=== PATIENT | female | born 1975 | race Two or more races ===

== ENCOUNTER 2016-07-27 20:41 | Emergency (ER) | payer MEDICAID, OTHER ==
[2016-07-27 20:52] VITALS: TEMP 97.9
[2016-07-27] MEDS ORDERED: ONDANSETRON 4 MG/2 ML VIAL IVP ONE (21:08)
[2016-07-27] MEDS ORDERED: NS 1,000 ML IV ONE (21:08)
--- NOTE | 2016-07-27 21:17 | EDPHY ---
H & P Stated Complaint: DAMIAN, n/v Time Seen by Provider: 07/27/16 20:56 HPI/ROS: Chief complaint: Nausea, vomiting and diarrhea History of present illness: This is a 41-year-old female who presents to the emergency department for evaluation of nausea, vomiting and diarrhea. Patient reports the onset of symptoms approximately 3 hours prior to arrival. Multiple episodes of vomiting and diarrhea described as nonbloody. She has had mild abdominal discomfort mostly in the epigastric region. She also feels fatigued. She denies specific precipitating factors. She denies alleviating factors. She denies other associated signs or symptoms including no fevers, no urinary symptoms. No report of sick contacts, travel or antibiotic use. Review of systems: A 10 point review of systems was obtained and other than described above was negative - Personal History LMP (Females 10-55): 1-7 Days Ago Current Tetanus/Diphtheria Vaccine: No Current Tetanus Diphtheria and Acellular Pertussis (TDAP): No - Medical/Surgical History Hx Asthma: No Hx Chronic Respiratory Disease: No Hx Diabetes: No Hx Cardiac Disease: No Hx Renal Disease: No Hx Cirrhosis: No Hx Alcoholism: No Hx HIV/AIDS: No Hx Splenectomy or Spleen Trauma: No Other PMH: depression in past. recent kidney stones w/ stents (feb 2014), c section - Social History Smoking Status: Light smoker - Physical Exam Exam: General Appearance: Alert, no distress. Eyes: Pupils equal and round no pallor or injection. ENT, Mouth: Mucous membranes moist. Respiratory: There are no retractions, lungs are clear to auscultation. Cardiovascular: Regular rate and rhythm. Gastrointestinal: Abdomen is soft and non tender, no masses, bowel sounds normal. Neurological: Alert and oriented. Strength and sensation intact and symmetrical. Skin: Warm and dry, no rashes. Musculoskeletal: Neck is supple non tender. Extremities are symmetrical, full range of motion. Psychiatric: Patient is oriented X 3, there is no agitation. Constitutional: Initial Vital Signs Temperature (C) 36.6 C 07/27/16 20:49 Heart Rate 78 07/27/16 20:49 Respiratory Rate 16 07/27/16 20:49 Blood Pressure 143/74 H 07/27/16 20:49 O2 Sat (%) 99 07/27/16 20:49 O2 Delivery Mode Room Air Allergies/Adverse Reactions: No Known Allergies Allergy (Verified 07/27/16 20:49) Home Medications: Medication Instructions Recorded Ibuprofen [Motrin (*)] 400 mg PO Q4 PRN #0 tab 12/22/15 Medical Decision Making ED Course/Re-evaluation: Patient seen under the supervision of my secondary supervising physician Dr. Aric Sheridan. Patient presents to the emergency department with nausea, vomiting and diarrhea as well as some abdominal discomfort. On presentation patient is nontoxic. She is afebrile and vital signs are stable. Mild tenderness in epigastric region without peritoneal signs. Serial abdominal exams are performed and remain benign in the emergency department. Blood studies and urinalysis are unremarkable. She is symptomatically treated with near resolution of symptoms. She is comfortable being discharged home. Home care is discussed. She is asked to follow up with the primary care doctor for recheck. Return precautions are given. Differential Diagnosis: Included but not limited to gastritis, peptic ulcer disease, gastroenteritis, biliary tract disease, pancreatitis colitis, appendicitis, urinary tract disease - Data Points Laboratory Results: Laboratory Results 07/27/16 21:20 07/27/16 21:20 07/27/16 07/27/16 07/27/16 21:20 21:20 21:20 WBC RBC Hgb Hct MCV MCH MCHC RDW Plt Count MPV Neut % (Auto) Lymph % (Auto) [place] % (Auto) Eos % (Auto) Baso % (Auto) Nucleat RBC Rel Count Absolute Neuts (auto) Absolute Lymphs (auto) Absolute Monos (auto) Absolute Eos (auto) Absolute Basos (auto) Absolute Nucleated RBC Immature Gran % Immature Gran # Sodium 143 mEq/L mEq/L (134-144) Potassium 3.8 mEq/L mEq/L (3.5-5.2) Chloride 108 mEq/L mEq/L (97-110) Carbon Dioxide 24 mEq/l mEq/l (22-31) Anion Gap 11 mEq/L mEq/L (8-16) BUN 13 mg/dL mg/dL (7-23) Creatinine 0.6 mg/dL mg/dL (0.6-1.0) Estimated GFR > 60 Glucose 100 mg/dL mg/dL (70-100) Calcium 9.1 mg/dL mg/dL (8.5-10.4) Total Bilirubin 0.5 mg/dL mg/dL (0.1-1.4) Conjugated Bilirubin 0.2 mg/dL mg/dL (0.0-0.5) Unconjugated Bilirubin 0.3 mg/dL mg/dL (0.0-1.1) AST 30 IU/L IU/L (14-46) ALT 38 IU/L IU/L (9-52) Alkaline Phosphatase 82 IU/L IU/L (38-126) Total Protein 7.8 g/dL g/dL (6.3-8.2) Albumin 4.2 g/dL g/dL (3.5-5.0) Lipase 101.0 IU/L IU/L (23-300) Beta HCG, Qual NEGATIVE Urine Color YELLOW Urine Appearance HAZY Urine pH 5.0 (5.0-7.5) Ur Specific [place] 1.021 (1.002-1.030) Urine Protein NEGATIVE (NEGATIVE) Urine Ketones TRACE H (NEGATIVE) Urine Blood NEGATIVE (NEGATIVE) Urine Nitrate NEGATIVE (NEGATIVE) Urine Bilirubin NEGATIVE (NEGATIVE) Urine Urobilinogen NEGATIVE EU EU (0.2-1.0) Ur Leukocyte Esterase NEGATIVE (NEGATIVE) Ur Culture Indicated? NOT INDICATED (NI) Urine Glucose NEGATIVE (NEGATIVE) 07/27/16 21:20 WBC 9.28 10^3/uL 10^3/uL (3.80-9.50) RBC 4.45 10^6/uL 10^6/uL (4.18-5.33) Hgb 12.0 g/dL L g/dL (12.6-16.3) Hct 36.5 % L % (38.0-47.0) MCV 82.0 fL fL (81.5-99.8) MCH 27.0 pg L pg (27.9-34.1) MCHC 32.9 g/dL g/dL (32.4-36.7) RDW 14.5 % % (11.5-15.2) Plt Count 293 10^3/uL 10^3/uL (150-400) MPV 9.8 fL fL (8.7-11.7) Neut % (Auto) 83.4 % H % (39.3-74.2) Lymph % (Auto) 10.9 % L % (15.0-45.0) [place] % (Auto) 4.8 % % (4.5-13.0) Eos % (Auto) 0.4 % L % (0.6-7.6) Baso % (Auto) 0.2 % L % (0.3-1.7) Nucleat RBC Rel Count 0.0 % % (0.0-0.2) Absolute Neuts (auto) 7.73 10^3/uL H 10^3/uL (1.70-6.50) Absolute Lymphs (auto) 1.01 10^3/uL 10^3/uL (1.00-3.00) Absolute Monos (auto) 0.45 10^3/uL 10^3/uL (0.30-0.80) Absolute Eos (auto) 0.04 10^3/uL 10^3/uL (0.03-0.40) Absolute Basos (auto) 0.02 10^3/uL 10^3/uL (0.02-0.10) Absolute Nucleated RBC 0.00 10^3/uL 10^3/uL (0-0.01) Immature Gran % 0.3 % % (0.0-1.1) Immature Gran # 0.03 10^3/uL 10^3/uL (0.00-0.10) Sodium Potassium Chloride Carbon Dioxide Anion Gap BUN Creatinine Estimated GFR Glucose Calcium Total Bilirubin Conjugated Bilirubin Unconjugated Bilirubin AST ALT Alkaline Phosphatase Total Protein Albumin Lipase Beta HCG, Qual Urine Color Urine Appearance Urine pH Ur Specific [place] Urine Protein Urine Ketones Urine Blood Urine Nitrate Urine Bilirubin Urine Urobilinogen Ur Leukocyte Esterase Ur Culture Indicated? Urine Glucose Medications Given: Discontinued Medications Acetaminophen (Tylenol) 650 mg PO EDNOW ONE Stop: 07/27/16 21:59 Last Admin: 07/27/16 22:03 Dose: 650 mg Sodium Chloride (Ns) 1,000 mls @ 0 mls/hr IV ONCE ONE PRN Reason: Wide Open Stop: 07/27/16 21:09 Last Admin: 07/27/16 21:25 Dose: 1,000 mls Miscellaneous Medication (Gi Cocktail) 55 ml PO EDNOW ONE Stop: 07/27/16 22:19 Last Admin: 07/27/16 22:33 Dose: 55 ml Ondansetron HCl (Zofran) 4 mg IVP EDNOW ONE Stop: 07/27/16 21:09 Last Admin: 07/27/16 21:25 Dose: 4 mg Departure - Departure Disposition: Home, Routine, Self-Care Clinical Impression: Vomiting and diarrhea Condition: Good Instructions: Ondansetron (By mouth), Acute Nausea and Vomiting (ED), Acute Diarrhea (ED), Acute Abdominal Pain (ED) Additional Instructions: Follow-up with a primary care doctor for recheck If symptoms worsen or new symptoms develop return to the emergency department for recheck Maribeth deedee adarsh de seguimiento con [facility] doctor. Si los sintomas empeoran o si desarrolla nuevos regrese a la tiffanie de emergencia. Referrals: NONE *PRIMARY CARE P,. [Primary Care Provider] - As per Instructions Stand Alone Forms: Work Excuse
[2016-07-27 21:30] LABS: % IMMATURE GRANULYOCYTES 0.3 % (0.0-1.1); ABSOLUTE IMMATURE GRANULOCYTES 0.03 10^3/uL (0.00-0.10); ADD DIFF? NO; ADD MORPH? NO; ADD SCAN? NO; ATYPICAL LYMPHOCYTE FLAG 20 (0-99); FRAGMENT RBC FLAG 0 (0-99); HEMATOCRIT 36.5 % (38.0-47.0); LEFT SHIFT FLG 10 (0-99); LIPEMIA HEMOLYSIS FLAG 80 (0-99); MEAN CELL HEMOGLOBIN CONCENTR. 32.9 g/dL (32.4-36.7); MEAN PLATELET VOLUME 9.8 fL (8.7-11.7); PLATELET CLUMPS FLAG 0 (0-99); PLATELET COUNT 293 10^3/uL (150-400); RED BLOOD CELL COUNT 4.45 10^6/uL (4.18-5.33); RED CELL DISTRIBUTION WIDTH 14.5 % (11.5-15.2)
[2016-07-27 21:40] LABS: COLOR YELLOW; LEUKOCYTE ESTERASE,URINE NEGATIVE (NEGATIVE); NITRITE,URINE NEGATIVE (NEGATIVE)
[2016-07-27 21:50] LABS: ALANINE AMINOTRANSFERASE 38 IU/L (9-52); ALBUMIN 4.2 g/dL (3.5-5.0); ALKALINE PHOSPHATASE 82 IU/L (38-126); ANION GAP 11 mEq/L (8-16); ASPARTATE AMINOTRANSFERASE 30 IU/L (14-46); BILIRUBIN,TOTAL 0.5 mg/dL (0.1-1.4); BILIRUBIN-CONJUGATED 0.2 mg/dL (0.0-0.5); BILIRUBIN-UNCONJUGATED 0.3 mg/dL (0.0-1.1); CALCIUM 9.1 mg/dL (8.5-10.4); CARBON DIOXIDE 24 mEq/l (22-31); CHLORIDE 108 mEq/L (97-110); CREATININE 0.6 mg/dL (0.6-1.0); GLOMERULAR FILTRATION RATE > 60; GLUCOSE 100 mg/dL (70-100); POTASSIUM 3.8 mEq/L (3.5-5.2); SODIUM 143 mEq/L (134-144); TOTAL PROTEIN 7.8 g/dL (6.3-8.2)
[2016-07-27] MEDS ORDERED: ACETAMINOPHEN 500 MG TAB PO ONE (21:58)
[2016-07-27] MEDS ORDERED: ACETAMINOPHEN 325 MG TAB ONE (21:59)
[2016-07-27] MEDS ORDERED: ONDANSETRON 4MG PREPACK#2 BTL TAKEHOME ONE (22:09)
[2016-07-27] MEDS ORDERED: MAALOX/LIDO/HYOSC GI COCKTAIL 55 ML BOTTLE PO ONE (22:18)
[2016-07-27 23:11] VITALS: BP 138/77; PULSE 80; RESP 18; O2SAT 96
== END 2016-07-27 23:08 | disposition home or self-care (01) ==
DX: R19.7 Diarrhea, unspecified (principal); R11.10 Vomiting, unspecified; F17.200 Nicotine dependence, unspecified, uncomplicated
CPT/HCPCS: 96374; J2405

== ENCOUNTER 2016-09-05 21:22 | Emergency (ER) | payer OTHER ==
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
[2016-09-05 21:56] LABS: % IMMATURE GRANULYOCYTES 0.3 % (0.0-1.1); ABSOLUTE IMMATURE GRANULOCYTES 0.02 10^3/uL (0.00-0.10); ADD DIFF? NO; ADD MORPH? NO; ADD SCAN? NO; ATYPICAL LYMPHOCYTE FLAG 10 (0-99); FRAGMENT RBC FLAG 0 (0-99); HEMATOCRIT 35.3 % (38.0-47.0); HEMOGLOBIN 11.7 g/dL (12.6-16.3); LEFT SHIFT FLG 0 (0-99); LIPEMIA HEMOLYSIS FLAG 80 (0-99); MEAN CELL HEMOGLOBIN 26.4 pg (27.9-34.1); MEAN CELL HEMOGLOBIN CONCENTR. 33.1 g/dL (32.4-36.7); MEAN CELL VOLUME 79.5 fL (81.5-99.8); MEAN PLATELET VOLUME 9.8 fL (8.7-11.7); PLATELET CLUMPS FLAG 10 (0-99); PLATELET COUNT 275 10^3/uL (150-400); RED BLOOD CELL COUNT 4.44 10^6/uL (4.18-5.33); RED CELL DISTRIBUTION WIDTH 14.9 % (11.5-15.2)
[2016-09-05 22:10] LABS: ALANINE AMINOTRANSFERASE 27 IU/L (9-52); ALBUMIN 4.3 g/dL (3.5-5.0); ALKALINE PHOSPHATASE 73 IU/L (38-126); ANION GAP 13 mEq/L (8-16); ASPARTATE AMINOTRANSFERASE 26 IU/L (14-46); BILIRUBIN,TOTAL 0.3 mg/dL (0.1-1.4); BILIRUBIN-CONJUGATED 0.3 mg/dL (0.0-0.5); CARBON DIOXIDE 19 mEq/l (22-31); CHLORIDE 110 mEq/L (97-110); CREATININE 0.7 mg/dL (0.6-1.0); GLOMERULAR FILTRATION RATE > 60; GLUCOSE 110 mg/dL (70-100); POTASSIUM 3.8 mEq/L (3.5-5.2); SODIUM 142 mEq/L (134-144); TOTAL PROTEIN 7.6 g/dL (6.3-8.2)
[2016-09-05] MEDS: HYOSCYAMINE SULFATE 0.125 MG TAB PO ONE (23:10)
[2016-09-05] MEDS: LIDOCAINE 2% VISCOUS 15 ML UDCUP PO ONE (23:10)
[2016-09-05] MEDS: MAG HYDROX/AL HYDROX/SIMETH 30 ML UDCUP PO ONE (23:10)
[2016-09-05 23:51] VITALS: BP 138/82; PULSE 75; RESP 20; TEMP 98.2; O2SAT 94
== END 2016-09-05 23:51 | disposition home or self-care (01) ==
DX: R10.13 Epigastric pain (principal); F17.200 Nicotine dependence, unspecified, uncomplicated

== ENCOUNTER 2016-12-30 13:53 | Emergency (ER) | payer MEDICAID, OTHER ==
[2016-12-30 14:09] VITALS: RESP 16
--- NOTE | 2016-12-30 14:43 | EDPHY ---
H & P Stated Complaint: SOB for a few months w/ epigastric pain Time Seen by Provider: 12/30/16 14:43 HPI/ROS: CHIEF COMPLAINT: Intermittent epigastric pain HISTORY OF PRESENT ILLNESS: The patient presents to the ED with a several month history of intermittent epigastric pain. She last experience pain earlier this morning. The patient's pain is precipitated by eating food. It is also associated with mild dyspnea. The patient denies any nausea, vomiting or melena. She denies diarrhea. The patient denies history of cholecystectomy or appendectomy. The patient denies taking any medications. The patient states her symptoms are moderate to severe in nature. REVIEW OF SYSTEMS: A comprehensive 10 point review of systems is otherwise negative aside from elements mentioned in the history of present illness. Source: Patient Exam Limitations: No limitations - Personal History LMP (Females 10-55): Now Current Tetanus/Diphtheria Vaccine: Unsure Current Tetanus Diphtheria and Acellular Pertussis (TDAP): Unsure - Medical/Surgical History Hx Asthma: No Hx Chronic Respiratory Disease: No Hx Diabetes: No Hx Cardiac Disease: No Hx Renal Disease: No Hx Cirrhosis: No Hx Alcoholism: No Hx HIV/AIDS: No Hx Splenectomy or Spleen Trauma: No Other PMH: depression in past. recent kidney stones w/ stents (feb 2014), c section - Social History Smoking Status: Light smoker - Physical Exam Exam: General Appearance: Alert, no distress Eyes: Pupils equal and round no pallor or injection ENT, Mouth: Mucous membranes moist Respiratory: There are no retractions, lungs are clear to auscultation Cardiovascular: Regular rate and rhythm Gastrointestinal: Epigastric and right upper quadrant tenderness to palpation, normal bowel sounds Neurological: A&O, normal motor function, normal sensory exam, normal cranial nerves Skin: Warm and dry, no rashes Musculoskeletal: Neck is supple nontender Extremities: symmetrical, full range of motion Constitutional: Initial Vital Signs Temperature (C) 36.8 C 12/30/16 14:07 Heart Rate 68 12/30/16 14:07 Respiratory Rate 16 12/30/16 14:07 Blood Pressure 102/74 12/30/16 14:07 O2 Sat (%) 99 12/30/16 14:07 O2 Delivery Mode Room Air Allergies/Adverse Reactions: No Known Allergies Allergy (Verified 07/27/16 20:49) Home Medications: Medication Instructions Recorded Ibuprofen [Motrin (*)] 400 mg PO Q4 PRN #0 tab 12/22/15 Pantoprazole Sodium [Protonix 40mg 40 mg PO DAILY #30 tab 09/05/16 (RX)] Ranitidine HCl [Zantac] 150 mg PO BID #60 tablet 12/30/16 Medical Decision Making - Diagnostics Imaging Results: Imaging Impressions Abdomen Ultrasound 12/30/16 14:57 Impression: Contracted gallbladder. Otherwise, normal right upper quadrant ultrasound. The pancreas is obscured by overlying bowel gas. ED Course/Re-evaluation: The patient presents to the ED with a longstanding history of intermittent epigastric discomfort worsened with eating. The patient had minimal tenderness to palpation on exam. The patient did have a right upper quadrant ultrasound which demonstrated no evidence of obvious cholelithiasis/cholecystitis. The patient's laboratory studies are within normal limits. The patient had serial examinations in the ED by myself. She was given a GI cocktail with improvement of her symptoms. The patient was re-evaluated at 5:00 p.m.. She is feeling better. At this point time I do feel she can be discharged home. She will be given a prescription for ranitidine. The patient is given customary aftercare instructions and return precautions. Differential Diagnosis: Differential diagnosis considered includes cholelithiasis, cholecystitis, metabolic abnormality, acute coronary syndrome, dyspepsia, gastritis, pancreatitis - Data Points Laboratory Results: Laboratory Results 12/30/16 15:50 12/30/16 15:50 12/30/16 12/30/16 12/30/16 15:50 15:50 15:50 WBC 4.97 10^3/uL 10^3/uL (3.80-9.50) RBC 4.10 10^6/uL L 10^6/uL (4.18-5.33) Hgb 10.8 g/dL L g/dL (12.6-16.3) Hct 32.7 % L % (38.0-47.0) MCV 79.8 fL L fL (81.5-99.8) MCH 26.3 pg L pg (27.9-34.1) MCHC 33.0 g/dL g/dL (32.4-36.7) RDW 15.2 % % (11.5-15.2) Plt Count 251 10^3/uL 10^3/uL (150-400) MPV 10.5 fL fL (8.7-11.7) Neut % (Auto) 63.6 % % (39.3-74.2) Lymph % (Auto) 27.4 % % (15.0-45.0) [place] % (Auto) 7.6 % % (4.5-13.0) Eos % (Auto) 0.6 % % (0.6-7.6) Baso % (Auto) 0.6 % % (0.3-1.7) Nucleat RBC Rel Count 0.0 % % (0.0-0.2) Absolute Neuts (auto) 3.16 10^3/uL 10^3/uL (1.70-6.50) Absolute Lymphs (auto) 1.36 10^3/uL 10^3/uL (1.00-3.00) Absolute Monos (auto) 0.38 10^3/uL 10^3/uL (0.30-0.80) Absolute Eos (auto) 0.03 10^3/uL 10^3/uL (0.03-0.40) Absolute Basos (auto) 0.03 10^3/uL 10^3/uL (0.02-0.10) Absolute Nucleated RBC 0.00 10^3/uL 10^3/uL (0-0.01) Immature Gran % 0.2 % % (0.0-1.1) Immature Gran # 0.01 10^3/uL 10^3/uL (0.00-0.10) Sodium 140 mEq/L mEq/L (134-144) Potassium 3.8 mEq/L mEq/L (3.5-5.2) Chloride 111 mEq/L H mEq/L (97-110) Carbon Dioxide 15 mEq/l L mEq/l (22-31) Anion Gap 14 mEq/L mEq/L (8-16) BUN 23 mg/dL mg/dL (7-23) Creatinine 0.7 mg/dL mg/dL (0.6-1.0) Estimated GFR > 60 Glucose 86 mg/dL mg/dL (70-100) Calcium 9.0 mg/dL mg/dL (8.5-10.4) Total Bilirubin 0.3 mg/dL mg/dL (0.1-1.4) Conjugated Bilirubin 0.3 mg/dL mg/dL (0.0-0.5) Unconjugated Bilirubin 0.0 mg/dL mg/dL (0.0-1.1) AST 28 IU/L IU/L (14-46) ALT 28 IU/L IU/L (9-52) Alkaline Phosphatase 77 IU/L IU/L (38-126) Total Protein 7.0 g/dL g/dL (6.3-8.2) Albumin 3.9 g/dL g/dL (3.5-5.0) Lipase 94.0 IU/L IU/L (23-300) Beta HCG, Qual NEGATIVE Medications Given: Discontinued Medications Al Hydroxide/Mg Hydroxide (Maalox Susp) 30 ml PO ONCE ONE Stop: 12/30/16 16:07 Last Admin: 12/30/16 16:22 Dose: 30 ml Hyoscyamine Sulfate (Levsin, Hyomax-Sl) 0.25 mg PO ONCE ONE Stop: 12/30/16 16:07 Last Admin: 12/30/16 16:22 Dose: 0.25 mg Sodium Chloride (Ns) 1,000 mls @ 0 mls/hr IV EDNOW ONE; Wide Open PRN Reason: Protocol Stop: 12/30/16 14:57 Last Admin: 12/30/16 15:47 Dose: 1,000 mls Lidocaine (Lidocaine 2% Viscous) 15 ml PO ONCE ONE Stop: 12/30/16 16:07 Last Admin: 12/30/16 16:22 Dose: 15 ml Departure - Departure Disposition: Home, Routine, Self-Care Clinical Impression: Gastritis Condition: Good Instructions: Gastritis (ED) Additional Instructions: 1. Please begin ranitidine as prescribed for your abdominal pain. 2. Please return to the ED for markedly worsening symptoms or other concerns. 3. Please follow-up with your primary care provider for a recheck within the next week. 4. Your laboratory studies and ultrasound demonstrate no evidence of obvious disease. Referrals: [facility],. [Clinic] - As per Instructions
[2016-12-30] MEDS ORDERED: NS 1,000 ML IV ONE (14:56)
[2016-12-30 15:56] LABS: % IMMATURE GRANULYOCYTES 0.2 % (0.0-1.1); ABSOLUTE IMMATURE GRANULOCYTES 0.01 10^3/uL (0.00-0.10); ADD DIFF? NO; ADD MORPH? NO; ADD SCAN? NO; ATYPICAL LYMPHOCYTE FLAG 20 (0-99); FRAGMENT RBC FLAG 0 (0-99); HEMATOCRIT 32.7 % (38.0-47.0); HEMOGLOBIN 10.8 g/dL (12.6-16.3); LEFT SHIFT FLG 0 (0-99); LIPEMIA HEMOLYSIS FLAG 80 (0-99); MEAN CELL HEMOGLOBIN 26.3 pg (27.9-34.1); MEAN CELL VOLUME 79.8 fL (81.5-99.8); MEAN PLATELET VOLUME 10.5 fL (8.7-11.7); PLATELET CLUMPS FLAG 0 (0-99); PLATELET COUNT 251 10^3/uL (150-400); RED CELL DISTRIBUTION WIDTH 15.2 % (11.5-15.2)
[2016-12-30] MEDS ORDERED: LIDOCAINE 2% VISCOUS 15 ML UDCUP PO ONE (16:06)
[2016-12-30] MEDS ORDERED: MAG HYDROX/AL HYDROX/SIMETH 30 ML UDCUP PO ONE (16:06)
[2016-12-30] MEDS ORDERED: HYOSCYAMINE SULFATE 0.125 MG TAB PO ONE (16:06)
[2016-12-30 16:30] LABS: ALANINE AMINOTRANSFERASE 28 IU/L (9-52); ALBUMIN 3.9 g/dL (3.5-5.0); ALKALINE PHOSPHATASE 77 IU/L (38-126); ANION GAP 14 mEq/L (8-16); ASPARTATE AMINOTRANSFERASE 28 IU/L (14-46); BILIRUBIN,TOTAL 0.3 mg/dL (0.1-1.4); BILIRUBIN-CONJUGATED 0.3 mg/dL (0.0-0.5); CARBON DIOXIDE 15 mEq/l (22-31); CHLORIDE 111 mEq/L (97-110); CREATININE 0.7 mg/dL (0.6-1.0); GLOMERULAR FILTRATION RATE > 60; GLUCOSE 86 mg/dL (70-100); POTASSIUM 3.8 mEq/L (3.5-5.2); SODIUM 140 mEq/L (134-144)
[2016-12-30 16:52] VITALS: BP 142/78; PULSE 81; TEMP 96.8; O2SAT 98
== END 2016-12-30 17:37 | disposition home or self-care (01) ==
DX: K29.70 Gastritis, unspecified, without bleeding (principal); F17.200 Nicotine dependence, unspecified, uncomplicated; E86.9 Volume depletion, unspecified; R06.00 Dyspnea, unspecified

== ENCOUNTER 2017-12-17 21:09 | Emergency (ER) | payer MEDICAID, OTHER ==
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
[2017-12-17] MEDS ORDERED: LIDOCAINE 2% VISCOUS 15 ML UDCUP PO ONE ×2 (21:48→23:29)
[2017-12-17] MEDS ORDERED: MAG HYDROX/AL HYDROX/SIMETH 30 ML UDCUP PO ONE ×2 (21:48→23:29)
[2017-12-17] MEDS ORDERED: NS 1,000 ML IV ONE (21:48)
[2017-12-17] MEDS ORDERED: HYOSCYAMINE SULFATE 0.125 MG TAB PO ONE ×2 (21:48→23:29)
[2017-12-17] MEDS ORDERED: FAMOTIDINE 20 MG/2 ML SDV IVP ONE (21:51)
--- NOTE | 2017-12-17 22:06 | CPEKG ---
Heart Rate: 59 RR Interval: 1017 P-R Interval: 144 QRSD Interval: 82 QT Interval: 408 QTC Interval: 405 P [place]: 55 QRS [place]: 16 T Wave [place]: 16 EKG Severity - NORMAL ECG - EKG Impression: SINUS RHYTHM Electronically Signed By: Lars Becerra 18-Dec-2017 06:42:39
[2017-12-17 22:29] LABS: PLATELET COUNT 263 10^3/uL (150-400)
[2017-12-17 22:33] LABS: INR 1.01 (0.83-1.16); PROTIME(PATIENT) 13.5 SEC (12.0-15.0)
[2017-12-17] MEDS ORDERED: FAMOTIDINE 20 MG TAB PO ONE (23:23)
[2017-12-17] MEDS ORDERED: FAMOTIDINE 20 MG/NACL 50 ML IV ONE (23:23)
[2017-12-17] MEDS ORDERED: TAMSULOSIN HCL 0.4 MG CAP PO ONE (23:23)
[2017-12-17] MEDS ORDERED: IOPAMIDOL (ISOVUE-300) 100 ML BTL ONE (23:30)
--- NOTE | 2017-12-18 00:29 | CPEKG ---
Heart Rate: 60 RR Interval: 1000 P-R Interval: 144 QRSD Interval: 92 QT Interval: 400 QTC Interval: 400 P [place]: 14 QRS [place]: 9 T Wave [place]: 1 EKG Severity - NORMAL ECG - EKG Impression: SINUS RHYTHM Electronically Signed By: Lars Beecrra 18-Dec-2017 06:42:39
[2017-12-18 00:53] VITALS: BP 146/89
== END 2017-12-18 00:53 | disposition home or self-care (01) ==
DX: K29.00 Acute gastritis without bleeding (principal); E86.9 Volume depletion, unspecified; F17.200 Nicotine dependence, unspecified, uncomplicated
CPT/HCPCS: 84484-PO; 96374; Q9967

== ENCOUNTER 2017-12-20 12:01 | Emergency (ER) | payer MEDICAID, OTHER ==
[2017-12-20] MEDS ORDERED: HYOSCYAMINE SULFATE 0.125 MG TAB PO ONE (12:40)
[2017-12-20] MEDS ORDERED: NS 1,000 ML IV ONE (12:40)
[2017-12-20] MEDS ORDERED: MAG HYDROX/AL HYDROX/SIMETH 30 ML UDCUP PO ONE (12:40)
[2017-12-20] MEDS ORDERED: LIDOCAINE 2% VISCOUS 15 ML UDCUP PO ONE (12:40)
--- NOTE | 2017-12-20 12:45 | EDPHY ---
H & P Stated Complaint: sob/abd distress/seen tuesday dx gastritis/has appt at tomorrow/not bet Time Seen by Provider: 12/20/17 12:31 HPI/ROS: CHIEF COMPLAINT: Epigastric discomfort HISTORY OF PRESENT ILLNESS: Patient is a 42-year-old female who reports having inflammation in her epigastric region. She also describes feeling short of breath. She denies chest pain or abdominal pain. She was seen here 2 days ago and had an extensive workup including ultrasound and CT scan of her abdomen that were negative. Negative troponin. Negative EKG and negative D-dimer and negative chest x-ray. She improved significantly GI cocktail and was discharged on antacids. She states that she took the NS at this morning but is not sure that it is working. No fever. No vomiting or diarrhea. She states that her symptoms are essentially the same. REVIEW OF SYSTEMS: Constitutional: denies: chills, fever, recent illness, recent injury EENTM: denies: blurred vision, double vision, nose congestion Respiratory: See HPI Cardiac: denies: chest pain, irregular heart rate, lightheadedness, palpitations Gastrointestinal/Abdominal: See HPI Genitourinary: denies: dysuria, frequency, hematuria, pain Musculoskeletal: denies: joint pain, muscle pain Skin: denies: lesions, rash, jaundice, bruising Neurological: denies: headache, numbness, paresthesia, tingling, dizziness, weakness Hematologic/Lymphatic: denies: blood clots, easy bleeding, easy bruising Immunologic/allergic: denies: HIV/AIDS, transplant EXAM: GENERAL: Well-appearing, obese and in no acute distress. HEAD: Atraumatic, normocephalic. EYES: Pupils equal round and reactive to light, extraocular movements intact, sclera anicteric, conjunctiva are normal. ENT: TMs normal, nares patent, oropharynx clear without exudates. Moist mucous membranes. NECK: Normal range of motion, supple without lymphadenopathy or JVD. LUNGS: Breath sounds clear to auscultation bilaterally and equal. No wheezes rales or rhonchi. HEART: Regular rate and rhythm without murmurs, rubs or gallops. ABDOMEN: Soft, nontender, normoactive bowel sounds. No guarding, no rebound. No masses appreciated. BACK: No CVA tenderness, no spinal tenderness, step-offs or deformities EXTREMITIES: Normal range of motion, no pitting or edema. No clubbing or cyanosis. NEUROLOGICAL: Cranial nerves II through XII grossly intact. Normal speech, normal gait. 5/5 strength, normal movement in all extremities, normal sensation PSYCH: Normal mood, normal affect. SKIN: Warm, dry, normal turgor, no visible rashes or lesions. Source: Patient, Old records - Personal History LMP (Females 10-55): 22-28 Days Ago Current Tetanus Diphtheria and Acellular Pertussis (TDAP): Unsure - Medical/Surgical History Hx Asthma: No Hx Chronic Respiratory Disease: No Hx Diabetes: No Hx Cardiac Disease: No Hx Renal Disease: No Hx Cirrhosis: No Hx Alcoholism: No Hx HIV/AIDS: No Hx Splenectomy or Spleen Trauma: No Other PMH: depression in past. recent kidney stones w/ stents (feb 2014), c section - Family History Significant Family History: No pertinent family hx - Social History Smoking Status: Former smoker Alcohol Use: Sober Drug Use: None Constitutional: Initial Vital Signs Temperature (C) 37 C 12/20/17 12:06 Heart Rate 63 12/20/17 12:06 Respiratory Rate 20 12/20/17 12:06 Blood Pressure 116/51 L 12/20/17 12:06 O2 Sat (%) 100 12/20/17 12:06 O2 Delivery Mode Room Air Allergies/Adverse Reactions: No Known Allergies Allergy (Verified 12/20/17 12:05) Home Medications: Medication Instructions Recorded Ibuprofen [Motrin (*)] 400 mg PO Q4 PRN #0 tab 12/22/15 Pantoprazole Sodium [Protonix 40mg 40 mg PO DAILY #30 tab 09/05/16 (RX)] Ranitidine HCl [Zantac] 150 mg PO BID #60 tablet 12/30/16 Ranitidine HCl [Zantac] 150 mg PO DAILY #14 tablet 12/18/17 Medical Decision Making - Diagnostics Imaging: Discussed imaging studies w/ call center director Radiologist ED Course/Re-evaluation: the patient is feeling somewhat better after GI cocktail. Discussed her lab work and imaging which is reassuring and similar to 2 days ago. I will and Toradol. 2:30 p.m. the patient is doing much better. She is eager to go home. I will refer her to GI. She declines prescriptions. Differential Diagnosis: Partial list of the Differential diagnosis considered include but were not limited to; cholelithiasis, biliary sludge, gallbladder dysfunction, peptic ulcer disease, gastritis and although unlikely based on the history and physical exam, I also considered PE, acute coronary disease, appendicitis. I discussed these differential diagnoses and the plan with the patient as well as the usual and expected course. The patient understands that the diagnosis is provisional and that in medicine we are not always correct and that further workup is often warranted. Usual and customary warnings were given. All of the patient's questions were answered. The patient was instructed to return to the emergency department should the symptoms at all worsen or return, otherwise to followup with the physician as we discussed. - Data Points Laboratory Results: Laboratory Results 12/20/17 13:05 12/20/17 13:05 Medications Given: Discontinued Medications Al Hydroxide/Mg Hydroxide (Maalox Susp) 30 ml PO ONCE ONE Stop: 12/20/17 12:41 Last Admin: 12/20/17 12:57 Dose: 30 ml Hyoscyamine Sulfate (Levsin, Hyomax-Sl) 0.25 mg PO ONCE ONE Stop: 12/20/17 12:41 Last Admin: 12/20/17 12:57 Dose: 0.25 mg Sodium Chloride (Ns) 1,000 mls @ 0 mls/hr IV EDNOW ONE; Wide Open PRN Reason: Protocol Stop: 12/20/17 12:41 Last Admin: 12/20/17 13:06 Dose: 1,000 mls Ketorolac Tromethamine (Toradol) 30 mg IVP EDNOW ONE Stop: 12/20/17 14:20 Last Admin: 12/20/17 14:21 Dose: 30 mg Lidocaine (Lidocaine 2% Viscous) 15 ml PO ONCE ONE Stop: 12/20/17 12:41 Last Admin: 12/20/17 12:57 Dose: 15 ml Point of Care Test Results: Chemistry 12/20/17 13:07 POC Troponin I 0.00 ng/mL ng/mL (0.00-0.08) Departure - Departure Disposition: Home, Routine, Self-Care Clinical Impression: Epigastric abdominal pain Condition: Fair Instructions: Epigastric Pain (ED) Additional Instructions: Follow-up with gastrology for further evaluation of your gallbladder possibly HIDA scan. Referrals: NONE *PRIMARY CARE P,. [Primary Care Provider] - As per Instructions Mahnke,Daus, MD [Medical Doctor] - 5-7 days, call for appt.
[2017-12-20 13:28] LABS: PLATELET COUNT 269 10^3/uL (150-400)
[2017-12-20] MEDS ORDERED: KETOROLAC 30 MG/1 ML SDV IVP ONE (14:19)
[2017-12-20 14:56] VITALS: BP 142/66
== END 2017-12-20 14:56 | disposition home or self-care (01) ==
DX: R10.13 Epigastric pain (principal); E86.9 Volume depletion, unspecified; Z87.891 Personal history of nicotine dependence
CPT/HCPCS: 84484-PO; 96374; J1885

== ENCOUNTER → 2018-01-04 | Outpatient (CLI) | payer MEDICAID, OTHER | LOC: FIMAGING 08:59 | PROVIDERS: ATTEND Physician Assistant Medical | DX: R10.11 Right upper quadrant pain (principal) | CPT/HCPCS: A9537 ==

== ENCOUNTER 2018-09-19 12:19 | Emergency (ER) | payer MEDICAID, OTHER ==
--- NOTE | 2018-09-19 13:17 | EDPHY ---
HPI/HX/ROS/PE/MDM Narrative: CHIEF COMPLAINT: Abdominal pain, bloating. HPI: This patient is a Albanian-speaking 43 year old female with history of kidney stones, depression. She complains of stomach bloating and pain, primarily at the top of her stomach. She endorses associated fatigue and shortness of breath. Her symptoms began yesterday after work with some bloating sensation. Later that evening she developed lower abdominal pain. She states these are similar symptoms to her prior ED visits. She has followed up at [facility] for a checkup, and states providers there told her there is nothing wrong, but her symptoms persist. For the last three months, she has had urgency to have a bowel movement but is often unable. She has tried MiraLax without relief. She endorses a frequent lack of appetite. She denies any sensation of acid reflux. No fever, chest pain, vomiting, diarrhea, dysuria, or other associated symptoms. HPI obtained primarily via web software engineer at bedside. REVIEW OF SYSTEMS: A comprehensive 10 system review of systems is otherwise negative aside from elements mentioned in the history of present illness and medical decision making. PMH: Kidney stones. Depression. Cesarian section. SOCIAL HISTORY: Employed. . Lives in [place]. PHYSICAL EXAM: General:Patient is alert, in no acute distress. ENT:Eyes are normal to inspection. ENT inspection normal. Neck: Normal inspection. Full range of motion. Respiratory:No respiratory distress. Breath sounds normal bilaterally. Cardiovascular: Regular rate and rhythm. Strong peripheral pulses. Normal cap refill. Abdomen:The abdomen is nontender to palpation. There are no peritoneal signs. There are normal bowel sounds. Back: Normal to inspection. No tenderness to palpation. Skin: Normal color. No rash. Warm and dry. Extremities: Normal appearance. Full range of motion. Neuro: Oriented x3. Normal motor function. Normal sensory function. ED Course: 43 y/o female presents with abdominal pain and bloating as well as complaints of some shortness of breath. She has no appreciable tenderness on exam. Plan for EKG, labs including CBC, chemistries, LFTs, lipase. Plan for x-ray of abdomen. EKG was ordered and interpreted by myself. Please see [facility] system for official reading. Reviewed laboratory studies. She is anemic, but this is chronic for her over the last five years based on prior laboratory studies. Labs otherwise largely unremarkable, liver and lipase panel results are within normal limits. X-ray of the abdomen negative for acute processes. 14:30 Reassessed. Plan to discharge home in good condition with referral to gastroenterology. She will try a 10 day course of OTC Prilosec. Follow up and return precautions discussed. She is comfortable with this plan. - Data Points Imaging Results: Imaging Impressions Abdomen X-Ray 09/19/18 13:17 Impression: No acute findings. Imaging: I viewed and interpreted images myself Laboratory Results: Laboratory Results 09/19/18 13:00 09/19/18 13:00 09/19/18 09/19/18 13:00 13:00 WBC 4.78 10^3/uL 10^3/uL (3.80-9.50) RBC 4.03 10^6/uL L 10^6/uL (4.18-5.33) Hgb 9.9 g/dL L g/dL (12.6-16.3) Hct 30.7 % L % (38.0-47.0) MCV 76.2 fL L fL (81.5-99.8) MCH 24.6 pg L pg (27.9-34.1) MCHC 32.2 g/dL L g/dL (32.4-36.7) RDW 14.9 % % (11.5-15.2) Plt Count 264 10^3/uL 10^3/uL (150-400) MPV 10.1 fL fL (8.7-11.7) Neut % (Auto) 56.9 % % (39.3-74.2) Lymph % (Auto) 33.9 % % (15.0-45.0) [place] % (Auto) 8.4 % % (4.5-13.0) Eos % (Auto) 0.2 % L % (0.6-7.6) Baso % (Auto) 0.4 % % (0.3-1.7) Nucleat RBC Rel Count 0.0 % % (0.0-0.2) Absolute Neuts (auto) 2.72 10^3/uL 10^3/uL (1.70-6.50) Absolute Lymphs (auto) 1.62 10^3/uL 10^3/uL (1.00-3.00) Absolute Monos (auto) 0.40 10^3/uL 10^3/uL (0.30-0.80) Absolute Eos (auto) 0.01 10^3/uL L 10^3/uL (0.03-0.40) Absolute Basos (auto) 0.02 10^3/uL 10^3/uL (0.02-0.10) Absolute Nucleated RBC 0.00 10^3/uL 10^3/uL (0-0.01) Immature Gran % 0.2 % % (0.0-1.1) Immature Gran # 0.01 10^3/uL 10^3/uL (0.00-0.10) Sodium 137 mEq/L mEq/L (135-145) Potassium 3.8 mEq/L mEq/L (3.5-5.2) Chloride 106 mEq/L mEq/L (97-110) Carbon Dioxide 21 mEq/l L mEq/l (22-31) Anion Gap 10 mEq/L mEq/L (6-14) BUN 16 mg/dL mg/dL (7-23) Creatinine 0.6 mg/dL mg/dL (0.6-1.0) Estimated GFR > 60 Glucose 89 mg/dL mg/dL (70-100) Calcium 9.3 mg/dL mg/dL (8.5-10.4) Total Bilirubin 0.3 mg/dL mg/dL (0.1-1.4) Conjugated Bilirubin 0.2 mg/dL mg/dL (0.0-0.5) Unconjugated Bilirubin 0.1 mg/dL mg/dL (0.0-1.1) AST 24 IU/L IU/L (14-46) ALT 37 IU/L IU/L (9-52) Alkaline Phosphatase 63 IU/L IU/L (38-126) Total Protein 7.0 g/dL g/dL (6.3-8.2) Albumin 3.8 g/dL g/dL (3.5-5.0) Lipase 55 IU/L IU/L (23-300) General Time Seen by Provider: 09/19/18 13:06 Initial Vital Signs: Initial Vital Signs Temperature (C) 36.8 C 09/19/18 12:21 Heart Rate 76 09/19/18 12:21 Respiratory Rate 18 09/19/18 12:21 Blood Pressure 123/66 H 09/19/18 12:21 O2 Sat (%) 99 09/19/18 12:21 O2 Delivery Mode Room Air Allergies/Adverse Reactions: No Known Allergies Allergy (Verified 09/19/18 12:20) Home Medications: Medication Instructions Recorded NK [No Known Home Meds] 09/19/18 Departure - Departure Disposition: Home, Routine, Self-Care Clinical Impression: Abdominal pain Qualifiers: Abdominal location: generalized Qualified Code(s): R10.84 - Generalized abdominal pain Condition: Good Instructions: Gas and Bloating (ED), Abdominal Pain (ED) Additional Instructions: Follow-up with your primary doctor within 72 hours. Follow up with gastroenterology as we discussed, within one week. Take Prilosec, available over the counter, for the next ten days as directed on the packaging. Return to the Emergency Department for worsening pain, fever, severe vomiting, change in character or severity of pain or other worsening of condition. Seguimiento con el doctor de cuidado primario en 72 horas. Seguimiento con el gastroentereologo fiona lo discutimos, en [place] semana. [place] Prolosec, disponible sin receta, por los siguientes 10 araujo fiona se le indica en la etiqueta. Regrese al Departamento de Emergencias por si el dolor empeora, feibre, vomito naty, cambio en el caracter o severidad del dolor u otro empeoramiento de la condicion. Referrals: Tahir Mack MD [Medical Doctor] - As per Instructions Report Scribed for: Tahir Orozco Report Scribed by: Rachana Ham Date of Report: 09/19/18 Time of Report: 14:43 Physician Review and Approval Statement: Portions of this note were transcribed by an ED scribe. I personally performed the history, physical exam, and medical decision making; and confirm the accuracy of the information in the transcribed note.
[2018-09-19 13:22] LABS: PLATELET COUNT 264 10^3/uL (150-400)
[2018-09-19 14:55] VITALS: BP 163/90
--- NOTE | 2018-09-19 15:12 | CPEKG ---
Test Reason : OPEN Blood Pressure : / mmHG Vent. Rate : 062 BPM Atrial Rate : 062 BPM P-R Int : 137 ms QRS Dur : 092 ms QT Int : 409 ms P-R-T Axes : 041 006 004 degrees QTc Int : 416 ms Sinus rhythm Confirmed by Tahir Orozco ([id number]) on 09/19/2018 3:12:05 PM Referred By: Tahir Orozco Confirmed By:Tahir Orozco
== END 2018-09-19 14:55 | disposition home or self-care (01) ==
LOC: SUPCPDRO 12:19 → EEVIPCON 12:19
DX: R10.84 Generalized abdominal pain (principal); R14.0 Abdominal distension (gaseous); R06.02 Shortness of breath; R53.83 Other fatigue

== ENCOUNTER 2018-09-23 21:06 | Emergency (ER) | payer OTHER ==
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
[2018-09-23] MEDS ORDERED: FAMOTIDINE 20 MG TAB PO ONE (21:54)
[2018-09-23] MEDS ORDERED: LIDOCAINE 2% VISCOUS 15 ML UDCUP PO ONE (22:07)
[2018-09-23] MEDS ORDERED: HYOSCYAMINE SULFATE 0.125 MG TAB PO ONE (22:07)
[2018-09-23] MEDS ORDERED: MAG HYDROX/AL HYDROX/SIMETH 30 ML UDCUP PO ONE (22:07)
[2018-09-23 22:09] LABS: PLATELET COUNT 270 10^3/uL (150-400)
[2018-09-23 23:37] VITALS: BP 135/41
--- NOTE | 2018-09-25 07:12 | CPEKG ---
Test Reason : OPEN Blood Pressure : / mmHG Vent. Rate : 062 BPM Atrial Rate : 062 BPM P-R Int : 143 ms QRS Dur : 091 ms QT Int : 418 ms P-R-T Axes : 044 -01 006 degrees QTc Int : 425 ms Sinus rhythm Confirmed by Loyl Forrest ([id number]) on 09/25/2018 7:11:45 AM Referred By: Loly Forrest Confirmed By:Loly Forrest
== END 2018-09-24 00:27 | disposition home or self-care (01) ==
DX: R10.13 Epigastric pain (principal); K59.00 Constipation, unspecified
CPT/HCPCS: 84484-ER

== ENCOUNTER 2018-09-24 22:26 | Emergency (ER) | payer OTHER ==
--- NOTE | 2018-09-24 23:05 | EDPHY ---
H & P Stated Complaint: Epigastric pain, constipation, seen yesterday Time Seen by Provider: 09/24/18 22:51 HPI/ROS: HPI The patient presents with ongoing constipation and epigastric pain for the last 2 weeks. This is her 3rd ED visit for similar complaint. She has had to KUB is a demonstrating constipation in the normal right upper quadrant ultrasound. She is currently taking a PPI, MiraLax, Colace, however had her last normal bowel movement about 2 weeks ago. Lately when she tries to have a bowel movement she is able to pass some gas and has a small hard bowel movement. She is able to tolerate fluids and food without any difficulty. Today she drink 3 large cups of prune juice, ate some vegetables but did not feel any better. Her epigastric pain continues and is described as an achy sensation which is moderate and does not radiate and is not worse with foods. She does not have any nausea or vomiting.. REVIEW OF SYSTEMS 10 systems were reviewed and negative with the exception of the elements mentioned in the history of present illness. PMHx: History of epigastric abdominal pain with extensive workup, has had 5 CT scans of her abdomen in the past, history of renal stones Soc Hx: Housed, Kiswahili speaking, here with her daughter PHYSICAL General Appearance: Alert, no distress Eyes: Pupils equal and round no pallor or injection ENT, Mouth: Mucous membranes moist Respiratory: There are no retractions, lungs are clear to auscultation Cardiovascular: Regular rate and rhythm Gastrointestinal: Abdomen is moderately distended with mild epigastric tenderness, no masses, bowel sounds normal Neurological: A&O, moves all extremities Skin: Warm and dry, no rashes Musculoskeletal: Neck is supple non tender Extremities: symmetrical, full range of motion Psychiatric: Patient is oriented X 3, there is no agitation Source: Patient, Family, Old records Exam Limitations: No limitations - Personal History LMP (Females 10-55): 8-14 Days Ago Current Tetanus Diphtheria and Acellular Pertussis (TDAP): Yes - Medical/Surgical History Hx Asthma: No Hx Chronic Respiratory Disease: No Hx Diabetes: No Hx Cardiac Disease: No Hx Renal Disease: No Hx Cirrhosis: No Hx Alcoholism: No Hx HIV/AIDS: No Hx Splenectomy or Spleen Trauma: No Other PMH: depression in past. recent kidney stones w/ stents (feb 2014), c section - Social History Smoking Status: Former smoker Constitutional: Initial Vital Signs Temperature (C) 36.9 C 09/24/18 22:38 Heart Rate 74 09/24/18 22:38 Respiratory Rate 17 09/24/18 22:38 Blood Pressure 128/71 H 09/24/18 22:38 O2 Sat (%) 100 09/24/18 22:38 O2 Delivery Mode Room Air Allergies/Adverse Reactions: No Known Allergies Allergy (Verified 09/24/18 22:40) Home Medications: Medication Instructions Recorded Anemia [facility] 09/23/18 Medical Decision Making Differential Diagnosis: 43-year-old female repeat presents to the emergency department with ongoing epigastric abdominal pain associated with constipation. She did follow our recommendations to drink plenty of fluids and take MiraLax, however has not had a bowel movement. She seems to have episodes of this epigastric pain with constipation over the last several years. Here, her abdominal exam demonstrates epigastric tenderness on par with yesterday's exam, however today she does appear to be more distended. I am concerned that constipation is driving her symptoms and given failed outpatient treatment, will administer soapsuds enema here. The patient had some watery stool output after enema. I attempted disimpaction , however there was no stool in the rectal vault. I will send her home with BhaveshLY in the hopes that this will induce a bowel movement and relieve her constipation. It seems like she has episodes of this every few years that present similarly. Her abdominal exam is not worrisome to me for obstruction. She is able to pass gas. She is comfortable will being discharged home and she can [facility] as needed. - Data Points Medications Given: Discontinued Medications Polyethylene Glycol/Electrolytes (Gavilyte - G) 4,000 ml PO ONCE ONE Stop: 09/25/18 01:21 Last Admin: 09/25/18 01:39 Dose: 4,000 ml Departure - Departure Disposition: Home, Routine, Self-Care Clinical Impression: Constipation Qualifiers: Constipation type: unspecified constipation type Qualified Code(s): K59.00 - Constipation, unspecified Condition: Good Instructions: Constipation (ED) Additional Instructions: Please use this new medication at home until you have a bowel movement in your stool is clear. Please return to the emergency department if your worse in any way. Otherwise please see [facility] in 1-2 days. Referrals: [facility],. [Clinic] - As per Instructions
[2018-09-25] MEDS ORDERED: PEG 3350/NA SULF,BICARB,CL/KCL (GAVILYTE-G) 4000 ML BTL PO ONE (01:20)
[2018-09-25 01:42] VITALS: BP 111/55
--- NOTE | 2018-09-26 10:59 | ASMTCMCOM ---
CM Note CM Note Notes: Late Entry from 09/25/18: Received a CM Consult order requesting that CM followup and see if pt can get in w/GI [facility] sooner than her already scheduled appt 10/16/18. CM called [facility] and spoke w/scheduling staff; they state they will reach out to the patient (with a Portuguese interpretor) and see if pt would be willing to be seen at a different location and/or by a PA in order to get seen sooner. CM also followed up with [facility] and they said pt was seen 09/21/18 and also has an appt coming up this Friday 09/29 with her PCP Shani Rodriguez. PC aware pt has been seen in the ED multiple times recently and are also aware that pt needs to followup with [facility]. CM available for further assistance if needed. Date Signed: 09/26/2018 10:58 AM Electronically Signed By:Mar Villalobos RN
== END 2018-09-25 01:44 | disposition home or self-care (01) ==
DX: R10.13 Epigastric pain (principal); K59.00 Constipation, unspecified